=== PATIENT | female | born 1960 | race Two or more races ===

== ENCOUNTER 2021-05-17 23:36 | Emergency (ER) | payer OTHER, MEDICAID ==
[~2021-05-17] VITALS: Ht 165.1 cm; Wt 91.0 kg
[2021-05-18] MEDS ORDERED: KETOROLAC 30MG/ML VIAL IV ONE (01:00)
[2021-05-18] MEDS ORDERED: MORPHINE SULFATE 4 MG/ML CPJ (NOT FOR IM USE) IV ONE (04:30)
[2021-05-18 06:41] LABS: BASOPHILS % 0.4 % (0.0-2.0); EOSINOPHILS % 1.9 % (0.0-5.0); HEMATOCRIT. 38.5 % (36.0-48.0); HEMOGLOBIN. 13.2 g/dL (12.0-16.0); LYMPHOCYTES % 17.6 % (20.0-50.0); MEAN CORPUSCULAR HEMOGLOBIN 33.4 pg (28.0-32.0); MEAN CORPUSCULAR VOLUME 97.3 fL (81.0-99.0); MEAN PLATELET VOLUME 7.9 fl (7.4-10.4); MONOCYTES % 7.1 % (2.0-8.0); PLATELET 266 x1000/uL (130-400); RED BLOOD CELL COUNT 3.95 mill/uL (4.2-5.4); RED CELL DISTRIBUTION WIDTH 17.8 % (11.6-14.6)
[2021-05-18 06:46] LABS: CHLORIDE 106 mEq/L (98-107)
[2021-05-18 08:43] VITALS: BP 141/62
== END 2021-05-18 09:57 | disposition short-term general hospital (02) ==
LOC: ER 23:36
DX: S72.392A Other fracture of shaft of left femur, initial encounter for closed fracture (principal); M70.822 Other soft tissue disorders related to use, overuse and pressure, left upper arm; M70.821 Other soft tissue disorders related to use, overuse and pressure, right upper arm; I10 Essential (primary) hypertension; W01.0XXA Fall on same level from slipping, tripping and stumbling without subsequent striking against object, initial encounter; Y93.89 Activity, other specified; Y92.018 Other place in single-family (private) house as the place of occurrence of the external cause
CPT/HCPCS: 36415; 73502; 73551; 73560; 73700; 80053; 85025; 96374; 96375; 99285; J1885; J2270